=== PATIENT | female | born 1980 | race Caucasian/White ===

== ENCOUNTER → 2017-06-24 | Outpatient (REF) | payer OTHER | LOC: M LAB REF 16:44 | PROVIDERS: ATTEND Physician Assistant | DX: J02.9 Acute pharyngitis, unspecified (principal) ==

== ENCOUNTER → 2020-09-01 | Outpatient (REF) | payer OTHER | LOC: M WUC 12:27 | PROVIDERS: ATTEND Physician Assistant | DX: N39.0 Urinary tract infection, site not specified (principal) ==

== ENCOUNTER → 2021-01-19 | Outpatient (CLI) | payer BC, OTHER ==
[~2021-01-19] MED LIST: ISOVUE-370 76% 100ML VIAL As Ordered ONE
--- NOTE | 2021-01-20 08:30 | REP ---
INDICATION: KIDNEY DISEASE, HEMATURIA. COMPARISON: Renal ultrasound 09/29/2011 TECHNIQUE: CT abdomen and pelvis performed without IV contrast. CT abdomen pelvis performed with IV contrast as well, following intravenous administration of 100 cc of Isovue 370. Sagittal, coronal and 3D MIP reconstruction images are performed. FINDINGS: Lung bases: Unremarkable. Liver: Normal Gallbladder: Unremarkable. Spleen: Normal. Adrenals: Normal. Pancreas: Normal. Kidneys: Left kidney shows a 7 mm nonobstructing stone in the lower pole. Right kidney 12.4 cm, left 13 cm in length. There are numerous bilateral cysts. The largest in the upper pole on the right is 4.9 cm. Largest on the left is an upper pole cyst 2.8 cm. An interpolar cyst on the right measuring 2.5 cm has a thin calcification at its periphery. There are no other cysts with calcified mcintyre or evidence for nodular, thick walled cysts. Cortical enhancement is symmetric except for the presence of numerous cysts. There is no hydronephrosis, hydroureter or ureteral stone. No perinephric or periureteral edema. Bladder is only partly filled, shows no wall thickening, mass or stone. Small and large bowel: Unremarkable. No perforation or abscess. Free fluid: None. Adenopathy: There are no pathologic sized periaortic, other retroperitoneal or mesenteric lymphadenopathy.. Appendix: Not inflamed. Osseous structures: Degenerative disc changes with narrowing of the disc spaces at L4-5 and L5-S1 with marginal osteophytes and facet arthropathy. No compression fracture or destructive lesions in the visualized spine. Lower ribs sacrum, pelvis and hips without acute finding. Pelvis: Uterus is somewhat globular, anteverted and tilted towards the left. There is a 3.8 cm cyst in the right ovary. No pelvic free fluid, adenopathy, ventral or inguinal hernia nor inguinal adenopathy. IMPRESSION: 1. Numerous bilateral cysts with the largest in the upper pole the the right at 4.9 cm. There is a mildly complex cyst with thin mcintyre buttock calcification interpolar region laterally on the right side no abnormal wall enhancement or nodularity of any of the cysts. No hydronephrosis or hydroureter nor solid renal mass. This is a Bosniak class 2F cyst. Follow-up in 6 months is recommended. 2. 3.8 cm simple cyst right ovary. 3. No other significant or acute finding. <Electronically signed by John Guadalupe > 01/20/21 [id number]
--- NOTE | 2021-01-20 10:02 | REP ---
INDICATION: KIDNEY DISEASE, HEMATURIA. COMPARISON: CT 01/19/2021. TECHNIQUE: Multiple sequences obtained in the axial and coronal planes without the use of intravenous contrast. FINDINGS: There is a 1 cm cyst in the posterior segment of the right lobe of the liver. There is a gallstone in the gallbladder measuring approximately 2.3 cm in diameter. Visualized spleen is grossly unremarkable, as are the adrenal glands and pancreas. Multiple, innumerable bilateral renal cysts are present. Evaluation is limited due to the lack of IV contrast administration. The largest cyst on the right is in the upper pole and measures 4.7 cm in diameter. There is a small amount of layering complex fluid posteriorly within that cyst. The largest cyst on the left is in the mid aspect anteriorly and measures approximately 3.0 cm in diameter. There is no adenopathy or free fluid in the visualized abdomen. IMPRESSION: Multiple, innumerable bilateral renal cysts. Evaluation of these cysts is limited without the use of intravenous contrast <Electronically signed by Bro Guerrero > 01/20/21 [id number]
== END ==
LOC: M RAD 16:47
PROVIDERS: ATTEND Internal Medicine
DX: Q61.3 Polycystic kidney, unspecified (principal); R31.29 Other microscopic hematuria; N83.201 Unspecified ovarian cyst, right side
CPT/HCPCS: 74178; 74181; Q9967

== ENCOUNTER 2022-12-22 07:44 | Day surgery (SDC) | payer BC, OTHER ==
[~2022-12-22] VITALS: Ht 165.1 cm; Wt 122.0 kg
[~2022-12-22 07:44] MED LIST changes: +AMPICILLIN SOD/SULBACTAM SOD 3 GM in D5W MINI-BAG PLUS 100 ML IV ONE; +ATOR1TAB21 PO; +B-12100010 PO; +CelecoXIB 400 MG CAP PO ONE; +ESTA0.25 PO; +INDOCYANINE GREEN 25MG VIAL (IC-GREEN) IV ONE; -ISOVUE-370 76% 100ML VIAL As Ordered ONE; +LISI20TA33 PO; +METF10004 PO; +METO1TAB87 PO; +OMEP-173 PO; +TRIA37.5 PO
[2022-12-22] MEDS ORDERED: propofoL 200 MG/20 ML VIAL As Ordered ONE ×2 (08:19→08:27)
[2022-12-22] MEDS ORDERED: ONDANSETRON 4MG 2ML VIAL As Ordered ONE (08:19)
[2022-12-22] MEDS ORDERED: LIDOCAINE 2% 100MG/5ML SDV (FOR ANES.) As Ordered ONE (08:19)
[2022-12-22] MEDS ORDERED: METOCLOPRAMIDE INJ 10MG/2ML VIAL As Ordered ONE (08:19)
[2022-12-22] MEDS ORDERED: ROCURONIUM BROMIDE 50MG/5ML VIAL As Ordered ONE ×2 (08:19→10:28)
[2022-12-22] MEDS ORDERED: KETOROLAC 60MG 2ML VIAL As Ordered ONE (08:20)
[2022-12-22] MEDS ORDERED: fentaNYL 100 MCG/2 ML INJECTION As Ordered ONE ×2 (08:30→10:25)
[2022-12-22] MEDS ORDERED: MIDAZOLAM INJ 2MG/2ML VIAL As Ordered ONE (08:30)
[2022-12-22] MEDS ORDERED: LIDOCAINE 1% SDV 30ML VIAL As Ordered ONE (09:22)
[2022-12-22] MEDS ORDERED: INDOCYANINE GREEN 25MG VIAL (IC-GREEN) As Ordered ONE (09:22)
[2022-12-22] MEDS ORDERED: ACETAMINOPHEN 1000MG 100ML IV BAG As Ordered ONE (09:58)
[2022-12-22] MEDS ORDERED: dexmedeTOMIDine (4MCG/ML)200MCG/50ML BTL (PRECEDEX) As Ordered ONE (10:21)
[2022-12-22] MEDS ORDERED: SUGAMMADEX SODIUM 500 MG/5 ML VIAL (BRIDION) As Ordered ONE (10:56)
[2022-12-22] MEDS ORDERED: ONDANSETRON 4MG 2ML VIAL IV PRN (11:05)
[2022-12-22] MEDS ORDERED: LR 1,000 ML IV SCH (11:05)
[2022-12-22] MEDS ORDERED: HYDROMORPHONE HCL 0.5 MG/ 0.5 ML SYRINGE IV PRN (11:05)
[2022-12-22] MEDS ORDERED: fentaNYL 100 MCG/2 ML INJECTION IV PRN (11:05)
[2022-12-22] MEDS ORDERED: oxyCODONE 5MG TAB PO PRN (11:05)
[2022-12-22] MEDS ORDERED: NORCO, ANEXSIA 5/325MG TABLET (HYDROcodone/ACETAMINOPHEN) PO PRN ×2 (12:05)
[2022-12-22 12:58] VITALS: BP 119/62; TEMP 97.9; O2SAT 98
[2022-12-22] MEDS ORDERED: KETOROLAC 30 MG/ML 1ML VIAL IV SCH (17:00)
== END 2022-12-22 13:34 | disposition home or self-care (01) ==
LOC: M SDC 07:44
PROVIDERS: ATTEND Surgery
DX: K80.10 Calculus of gallbladder with chronic cholecystitis without obstruction (principal); K76.0 Fatty (change of) liver, not elsewhere classified; K76.89 Other specified diseases of liver; R16.0 Hepatomegaly, not elsewhere classified; E66.01 Morbid (severe) obesity due to excess calories; Z68.41 Body mass index [BMI] 40.0-44.9, adult; I10 Essential (primary) hypertension; E11.9 Type 2 diabetes mellitus without complications
CPT/HCPCS: 47562; 81025; 88304; J0131; J0295; J1100; J1885; J2250; J2405; J2765; J3010; Q9968; S0020; S2900

== ENCOUNTER 2025-03-22 06:02 | Day surgery (SDC) | payer BC ==
[~2025-03-22] VITALS: Ht 162.6 cm; Wt 85.6 kg
[~2025-03-22 06:02] MED LIST changes: -AMPICILLIN SOD/SULBACTAM SOD 3 GM in D5W MINI-BAG PLUS 100 ML IV ONE; -CelecoXIB 400 MG CAP PO ONE; -INDOCYANINE GREEN 25MG VIAL (IC-GREEN) IV ONE; +IRON65TA2 PO; +LISI10TA22 PO; +SITA50TAB PO; +TIRZ7.5P
[2025-03-22] MEDS ORDERED: GLYCOPYRROLATE INJ 0.2 MG/ML 2 ML VIAL As Ordered ONE (06:13)
[2025-03-22] MEDS ORDERED: LIDOCAINE 2% 100 MG/5 ML SDV (FOR ANES.) As Ordered ONE (06:13)
[2025-03-22] MEDS ORDERED: SUGAMMADEX SODIUM 500 MG/5 ML VIAL As Ordered ONE (06:13)
[2025-03-22] MEDS ORDERED: ONDANSETRON 4MG 2ML VIAL As Ordered ONE (06:14)
[2025-03-22] MEDS ORDERED: KETOROLAC 30 MG/ML 1 ML VIAL As Ordered ONE (06:14)
[2025-03-22] MEDS ORDERED: ACETAMINOPHEN 1000MG/100ML IV BAG As Ordered ONE (06:14)
[2025-03-22] MEDS ORDERED: dexAMETHasone 4 MG/ML 1 ML VIAL As Ordered ONE (06:14)
[2025-03-22] MEDS ORDERED: ROCURONIUM BROMIDE 50MG/5ML VIAL As Ordered ONE (06:15)
[2025-03-22] MEDS ORDERED: MIDAZOLAM INJ 2 MG/2 ML VIAL As Ordered ONE (06:19)
[2025-03-22 06:28] LABS: PLATELET COUNT, AUTOMATED 325 10^3/uL (150-450)
[2025-03-22] MEDS: LR 1,000 ML IV SCH (06:35)
[2025-03-22] MEDS ORDERED: dexmedeTOMIDine (4 MCG/ML) 200 MCG/50 ML BTL As Ordered ONE (06:54)
[2025-03-22] MEDS: ceFAZolin SOD 2 GM IV ONCE IV ONE (07:41)
[2025-03-22] MEDS ORDERED: PHENYLephrine 500MCG 5ML (100MCG/ML) SYRINGE As Ordered ONE (07:43)
[2025-03-22] MEDS ORDERED: HYDROmorphone HCL 2 MG/ML 1 ML VIAL As Ordered ONE (08:15)
[2025-03-22] MEDS ORDERED: ONDANSETRON 4MG 2ML VIAL IV PRN (09:10)
[2025-03-22] MEDS ORDERED: HYDROMORPHONE HCL 0.5 MG/0.5 ML SYRINGE IV PRN (09:10)
[2025-03-22] MEDS ORDERED: LR 1,000 ML IV SCH (09:10)
[2025-03-22] MEDS ORDERED: IBUP600T42 PO (09:40)
[2025-03-22] MEDS ORDERED: COLA100C5 PO (09:41)
[2025-03-22] MEDS ORDERED: OXYC1TAB23 PO (09:44)
[2025-03-22 12:00] VITALS: BP 111/53; TEMP 97.2; O2SAT 96
== END 2025-03-22 12:18 | disposition home or self-care (01) ==
LOC: M SDC 06:02
PROVIDERS: ATTEND Specialist
DX: N80.03 Adenomyosis of the uterus (principal); N93.9 Abnormal uterine and vaginal bleeding, unspecified; N88.8 Other specified noninflammatory disorders of cervix uteri; N83.8 Other noninflammatory disorders of ovary, fallopian tube and broad ligament; D25.1 Intramural leiomyoma of uterus; D50.9 Iron deficiency anemia, unspecified; E11.9 Type 2 diabetes mellitus without complications; I10 Essential (primary) hypertension; E78.00 Pure hypercholesterolemia, unspecified; K21.9 Gastro-esophageal reflux disease without esophagitis; Z79.84 Long term (current) use of oral hypoglycemic drugs; Z79.899 Other long term (current) drug therapy; Z79.85 Long-term (current) use of injectable non-insulin antidiabetic drugs
CPT/HCPCS: 36415; 58571; 81025; 85027; 86850; 86900; 86901; 88307; J0131; J0665; J0688; J1100; J1171; J1596; J1885; J2250; J2371; J2405; J2765; J3010; S2900